=== PATIENT | female | born 1955 | race Caucasian/White ===

== ENCOUNTER 2017-10-31 20:08 | Emergency (ER) | payer OTHER ==
[~2017-10-31] VITALS: Ht 172.7 cm; Wt 90.7 kg
[2017-10-31 20:30] LABS: ABSOLUTE BASOPHIL COUNT 0.1 /CUMM (0.0-0.2); ABSOLUTE EOSINOPHIL COUNT 0.3 /CUMM (0.0-0.7); ABSOLUTE LYMPH COUNT 3.8 /CUMM (1.2-3.4); ABSOLUTE MONOCYTE COUNT 0.5 /CUMM (0.10-0.60); BASOPHIL % 0.6 % (0.0-2.0); GRANULOCYTE % 46.5 % (42.2-75.2); HEMATOCRIT 43.2 % (37-47); MEAN CORPUSCULAR HGB 28.7 PG (27.0-31.0); MEAN CORPUSCULAR HGB CONC 33.1 G/DL (33.0-37.0); MEAN CORPUSCULAR VOLUME 86.7 FL (81.0-99.0); MEAN PLATELET VOLUME 7.1 FL (7.4-10.4); PLATELET COUNT 349 /CUMM (130-400); RBC DISTRIBUTION WIDTH 13.1 % (11.5-14.5); RED BLOOD CELL CT 4.99 /CUMM (4.20-5.40); WHITE BLOOD CELL COUNT 8.6 /CUMM (4.8-10.8)
--- NOTE | 2017-10-31 20:47 | RADIOLOGY REPORT ---
EXAMINATION: XR CHEST CLINICAL INFORMATION: Chest pain dizziness COMPARISON: None TECHNIQUE: 2 views of the chest were obtained. FINDINGS: No significant abnormality is noted involving the heart, lungs, mediastinum, bony thorax or soft tissues. IMPRESSION: Unremarkable examination.
--- NOTE | 2017-10-31 21:45 | ED CARDIAC/CP/PALPITATIONS ---
History of Present Illness General Chief Complaint: Chest Pain Stated Complaint: CHEST PAIN, DIZZY, L SIDE FACIAL NUMBNESS PER PT Source: patient, family, old records Exam Limitations: no limitations Vital Signs & Intake/Output Vital Signs & Intake/Output Vital Signs Date Time Temp Pulse Resp B/P B/P Pulse O2 O2 Flow FiO2 Mean Ox Delivery Rate 10/31 2343 96.4 64 20 118/64 95 Room Air 10/31 2017 98.1 91 18 136/74 96 Room Air ED Intake and Output 11/01 0000 10/31 1200 Intake Total 0 Output Total Balance 0 Intake, Oral 0 Patient 200 lb Weight Allergies Coded Allergies: penicillin G (Severe, LIP SWELLINGS AND FACIAL REDNESS 10/31/17) Reconcile Medications Famotidine (Pepcid) 20 MG TABLET 1 TAB PO BID gastritis Metoclopramide HCl (Reglan) 10 MG TABLET 1 TAB PO 4 TIMES/DAY PRN nausea 30 minutes before meals and bedtime Scopolamine 1 MG/3 DAY PATCH.TD.3 1 PATCH TOP Q72 PRN dizziness Triage Note: 62 YEAR OLD FEMALE COMES TO ER WITH COMPLAINTS OF NON RADIATING INTERMITTANT UPPER MID CHEST PAIN THAT STARTED LAST PM WHILE SLEEPING , ALSO COMPLAINS OF DIZZINESS. PT STATES THAT SHE HAS A HISTORY OF VERTIGO BUT THIS IS DIFFERENT, PT CAME TONIGT DUE TO IT HAS BEEN MORE FREQUENT AND IS CONCERNED. PT TO EKG ALCOVE. NSR ON MONITOR Triage Nurses Notes Reviewed? yes Onset: Morning Duration: hour(s):, constant, continues in ED Timing: recent history Quality/Severity: moderate, pressure Location: central Radiation: jaw Activities at Onset: sleep Prior Chest Pain/Card Workup: no prior cardiac workup Nitro Today/Relief: no nitro taken today Aspirin Today: no aspirin today Associated Symptoms: dizziness, shortness of breath, nausea/vomiting LMP (ages 10-50): post menopausal : No Patient currently breastfeeds: No HPI: Patient was awoken this morning with substernal chest discomfort described as pressure mild to moderate constant associated with dizziness shortness of breath nausea anxiety radiating to left jaw. She denies fever chills vomiting diarrhea abdominal pain headache dysuria rash bleeding. Past History Travel History Traveled to [place] past 21 day No Medical History Any Pertinent Medical History? see below for history Neurological: vertigo EENT: NONE Cardiovascular: NONE Respiratory: NONE Gastrointestinal: NONE Hepatic: NONE Renal: NONE Musculoskeletal: NONE Psychiatric: NONE Endocrine: NONE Blood Disorders: NONE Cancer(s): NONE APPLICATION SUPPORT/Reproductive: NONE Surgical History Surgical History: non-contributory Psychosocial History What is your primary language Gambian Tobacco Use: Never used ETOH Use: denies use Illicit Drug Use: denies illicit drug use Family History Hx Contributory? No Review of Systems Review of Systems Constitutional: Reports: see HPI, malaise. EENTM: Reports: no symptoms. Respiratory: Reports: see HPI, short of breath. Cardiovascular: Reports: see HPI, chest pain. GI: Reports: see HPI, nausea. Genitourinary: Reports: no symptoms. Musculoskeletal: Reports: no symptoms. Skin: Reports: no symptoms. Neurological/Psychological: Reports: no symptoms. Hematologic/Endocrine: Reports: no symptoms. Immunologic/Allergic: Reports: no symptoms. All Other Systems: Reviewed and Negative Physical Exam Physical Exam General Appearance: well developed/nourished, alert, awake, anxious, mild distress, obese Head: atraumatic, normal appearance Eyes: Bilateral: normal appearance, PERRL, EOMI. Ears, Nose, Throat: normal pharynx, normal ENT inspection, hearing grossly normal, moist mucus membranes Neck: normal inspection, supple, full range of motion, no midline tenderness Respiratory: normal breath sounds, chest non-tender, no respiratory distress, quiet respiration, lungs clear Cardiovascular: regular rate/rhythm, normal peripheral pulses, norml femoral pulses equa Peripheral Pulses: 4+ carotid (R), 4+ carotid (L) Gastrointestinal: normal bowel sounds, soft, non-tender, no organomegaly Back: normal inspection, normal range of motion, no vertebral tenderness Extremities: normal inspection, normal capillary refill, normal range of motion, no edema, no ligament instability Neurologic/Psych: no motor/sensory deficits, awake, alert, oriented x 3, normal gait, normal mood/affect, oreman II-XII nml as tested Reflexes: 2+: bicep (R), bicep (L). Skin: intact, normal color, warm/dry Lymphatic: no anterior cervical nancy Core Measures ACS in differential dx? Yes No ASA d/t Medical Contraindication CVA/TIA Diagnosis No Sepsis Present: No Sepsis Focused Exam Completed? No Progress Differential Diagnosis: AMI, hyperkalemia, hypovolemia, hyperthyroid, pancreatitis, pneumonia Plan of Care: Orders Procedure Date/time Status TROPONIN LEVEL 02/07 2320 Complete Add-on Test (ER Only) 10/31 2142 Active TSH REFLEX 10/31 2020 Complete MAGNESIUM 10/31 2020 Complete LIPASE 10/31 2020 Complete TROPONIN LEVEL 10/31 2015 Complete COMPREHENSIVE METABOLIC PANEL 10/31 2015 Complete CBC WITHOUT DIFFERENTIAL 10/31 2015 Complete EKG 10/31 2008 Active Laboratory Tests 10/31/17 2341: Troponin I < 0.01 10/31/172020: Anion Gap 12, Estimated GFR > 60, BUN/Creatinine Ratio 25.0, Glucose 112 H, Calcium 10.0, Magnesium 2.0, Total Bilirubin 0.2, AST 24, ALT 31, Alkaline Phosphatase 90, Troponin I < 0.01, Total Protein 8.2, Albumin 5.2 H, Globulin 3.0, Albumin/Globulin Ratio 1.7, Lipase 237, TSH &T3 &Free T4 Intrp 2.530, CBC w Diff NO MAN DIFF REQ, RBC 4.99, MCV 86.7, MCH 28.7, MCHC 33.1, RDW 13.1, MPV 7.1 L, Gran % 46.5, Lymphocytes % 43.8, Monocytes % 6.1, Eosinophils % 3.0, Basophils % 0.6, Absolute Granulocytes 4.0, Absolute Lymphocytes 3.8 H, Absolute Monocytes 0.5, Absolute Eosinophils 0.3, Absolute Basophils 0.1 Diagnostic Imaging: Viewed by Me: Radiology Read. Discussed w/RAD: Radiology Read. CXR Impression: no acute abnormality, no infiltrates, normal size heart, normal mediastinum Initial ED EKG: normal axis, normal intervals, normal p-waves, normal QRS complex, normal sinus rhythm, no ST T wave changes Prior EKG: unchanged Rhythm Strip: normal sinus rhythm Comments: Feels better after interventions Departure Departure Time of Disposition: 36 Disposition: HOME OR SELF CARE Condition: Stable Clinical Impression Primary Impression: Chest pain not due to acute coronary syndrome Secondary Impressions: Dizziness, nonspecific, GERD (gastroesophageal reflux disease) Referrals: Lashon ELY,Ezekiel Ceron Patient Has No Primary Care Dr Departure Forms: Customer Survey General Discharge Information RELEASE- WORK days. May Return to Work today: No Number of days excused from work: 2 (Including today's visit) Prescriptions: Current Visit Scripts Metoclopramide HCl (Reglan) 1 TAB PO 4 TIMES/DAY PRN nausea #30 TAB 30 minutes before meals and bedtime Famotidine (Pepcid) 1 TAB PO BID #60 TAB Scopolamine 1 PATCH TOP Q72 PRN dizziness #4 PATCH Critical Care Note Critical Care Note Critical Care Time: 30-74 min (40)
[2017-11-01] MEDS ORDERED: SCOPOLAMINE1 EAC1 TOP (00:15)
[2017-11-01] MEDS ORDERED: PEPCID20 M1 PO (00:15)
[2017-11-01] MEDS ORDERED: REGLAN10 M1 PO (00:15)
[2017-11-01 01:11] VITALS: BP 153/88
== END 2017-11-01 01:10 ==
LOC: ERH 20:08
PROVIDERS: Emergency Medicine
DX: R07.89 Other chest pain (principal); K21.9 Gastro-esophageal reflux disease without esophagitis; R42 Dizziness and giddiness
CPT/HCPCS: 71046; 93005; 93010; 96374; 96375; J2765